=== PATIENT | male | born 1995 | race Asian ===

== ENCOUNTER 2017-08-17 18:58 | Inpatient (IN) | payer OTHER ==
[2017-08-17 19:53] LABS: Hematocrit 47 % (42-52); Mean Corpuscular HGB Conc 34 g/dl (31-36); Mean Corpuscular Hemoglobin 29 pg (27-31); Mean Corpuscular Volume 86 fL (80-94); Mean Platelet Volume 8 um3 (7.4-10.4); Red Blood Count 5.43 10^6/ul (4.0-5.4); Red Cell Distribution Width 12 % (10.5-15); White Blood Count 7.2 10^3/ul (3.5-10.8)
[2017-08-17 20:05] LABS: ALT 13 U/L (7-52); AST 13 U/L (13-39); Acetaminophen < 15 mcg/mL; Albumin 4.5 g/dL (3.2-5.2); Alcohol < 10 mg/dL (<10); Alkaline Phosphatase 70 U/L (34-104); Anion Gap 6 mmol/L (2-11); BUN/Creatinine Ratio 13.8 (8-20); Blood Urea Nitrogen 12 mg/dL (6-24); CO2 Carbon Dioxide 28 mmol/L (22-32); Calcium 9.3 mg/dL (8.6-10.3); Chloride 105 mmol/L (101-111); EGFR African American 142.5 (>60); EGFR Non-African American 110.8 (>60); Globulin 2.9 g/dL (2-4); Glucose 99 mg/dL (70-100); Potassium 3.7 mmol/L (3.5-5.0); Salicylate < 2.50 mg/dL (<30); Sodium 139 mmol/L (133-145); Total Protein 7.4 g/dL (6.4-8.9)
[2017-08-17 20:23] LABS: TSH (Thyroid Stimulating Horm) 0.95 mcIU/mL (0.34-5.60)
[2017-08-17 20:36] LABS: Urine Bilirubin Negative (Negative); Urine Glucose Negative (Negative); Urine Nitrite Negative (Negative)
[2017-08-17 20:54] LABS: Benzodiazepine Urine Screen None Detected (None Detect)
[2017-08-18] MEDS ORDERED: diPHENhydraMINE PO* 50 MG ONE (01:40)
[2017-08-18] MEDS ORDERED: Acetaminophen TAB* 325 MG PO PRN (02:11)
[2017-08-18] MEDS ORDERED: Al Hydrox/Mg Hydrox/Simet LIQ* 30 ML UDC PO PRN (02:11)
--- NOTE | 2017-08-18 06:18 | ED ---
Jamee Carlisle Alfonso, scribed for Too Kumar MD on 08/17/17 at 1934 . Psychiatric Complaint - HPI Summary HPI Summary: This patient is a 22 year old M brought in by police 941 to [facility] with a chief complaint of SI since earlier today. He states I told my mother I would rather be than alive and I feel like my life day to day sucks and the best part of my day is sleeping. The patient rates the pain 0/10 in severity. Symptoms aggravated by academic stress. Symptoms alleviated by nothing. Patient reports academic stress. Patient denies an SI plan and previous SI attempts. 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 FHx of depression in mother. - History Of Current Complaint Chief Complaint: EDMentalHealth Time Seen by Provider: 08/17/17 19:12 Hx Obtained From: Patient Onset/Duration: Sudden Onset, Lasting Hours, Still Present Timing: Constant Character: Depressed Aggravating Factor(s): Recent Stress - academic Alleviating Factor(s): Nothing Has Suicidal: Reports: Thoughts. Denies: With A Plan, Demonstrates Gesture, Has Prior Attempt(s) - Allergies/Home Medications Allergies/Adverse Reactions: Allergies Allergy/AdvReac Type Severity Reaction Status Date / Time No Known Allergies Allergy Verified 08/17/17 19:06 PMH/Surg Hx/FS Hx/Imm Hx Opthamlomology History: Denies: Hx Legally Blind EENT History: Denies: Hx Deafness Infectious Disease History: No Infectious Disease History: Denies: Traveled Outside the [place] in Last 30 Days - Family History Known Family History: Positive: Other - Depression in mother - Social History Occupation: Student Alcohol Use: Occasionally Substance Use Type: Reports: None Hx Tobacco Use: Yes Smoking Status (MU): Current Some Day Smoker Review of Systems Negative: Fever Psychological: Other - SI, academic stress; negative SI plan and previous SI attempts All Other Systems Reviewed And Are Negative: Yes Physical Exam - Summary Physical Exam Summary: VITAL SIGNS: Reviewed. GENERAL: Patient is a well-developed and nourished male who is lying comfortable in the stretcher. Patient is not in any acute respiratory distress. HEAD AND FACE: No signs of trauma. No ecchymosis, hematomas or skull depressions. No sinus tenderness. EYES: PERRLA, EOMI x 2, No injected conjunctiva, no nystagmus. EARS: Hearing grossly intact. Ear canals and tympanic membranes are within normal limits. MOUTH: Oropharynx within normal limits. NECK: Supple, trachea is midline, no adenopathy, no JVD, no carotid bruit, no c- spine tenderness, neck with full ROM. CHEST: Symmetric, no tenderness at palpation LUNGS: Clear to auscultation bilaterally. No wheezing or crackles. CVS: Regular rate and rhythm, S1 and S2 present, no murmurs or gallops appreciated. ABDOMEN: Soft, non-tender. No signs of distention. No rebound no guarding, and no masses palpated. Bowel sounds are normal. EXTREMITIES: FROM in all major joints, no edema, no cyanosis or clubbing. NEURO: Alert and oriented x 3. No acute neurological deficits. Speech is normal and follows commands. SKIN: Dry and warm PSYCH: Depressed, quiet, and reports suicidal thoughts without a plan. No homicidal thoughts or plan. No signs of psychosis or pressure speech. No tangential speech. Triage Information Reviewed: Yes Vital Signs On Initial Exam: Initial Vitals Temp Pulse Resp BP Pulse Ox 97.7 F 83 18 132/78 99 08/17/17 19:04 08/17/17 19:04 08/17/17 19:04 08/17/17 19:04 08/17/17 19:04 Vital Signs Reviewed: Yes Diagnostics - Vital Signs Vital Signs Temp Pulse Resp BP Pulse Ox 08/17/17 19:04 97.7 F 83 18 132/78 99 - Laboratory Result Diagrams: 08/17/17 19:29 08/17/17 19:29 Lab Statement: Any lab studies that have been ordered have been reviewed, and results considered in the medical decision making process. Course/Dx - Course Assessment/Plan: This patient is a 22 year old M brought in by police 941 to [facility] with a chief complaint of SI since earlier today. He states I told my mother I would rather be than alive and I feel like my life day to day sucks and the best part of my day is sleeping. The patient rates the pain 0/10 in severity. Symptoms aggravated by academic stress. Symptoms alleviated by nothing. Patient reports academic stress. Patient denies an SI plan and previous SI attempts. 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 FHx of depression in mother. Test results with no significant abnormalities. The patient is medically cleared and awaiting a MHE. After MHE, [place] was [place] [facility] - Differential Dx/Clinical Impression Provider Diagnosis: Depressive disorder Discharge - Discharge Plan Condition: Guarded Disposition: ADMITTED TO [facility] documentation as recorded by the Jamee may Alfonso accurately reflects the service I personally performed and the decisions made by , Too Kumar MD.
[2017-08-18] MEDS: Vitamin THERAPEUTIC TAB PO SCH (09:48)
[2017-08-18] MEDS ORDERED: traZODone TAB* 50 MG TAB PO PRN (14:03)
[2017-08-18] MEDS ORDERED: Gabapentin CAP(*) 100 MG PO SCH (21:00)
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
[2017-08-19] MEDS: Vitamin THERAPEUTIC TAB PO SCH (09:04)
--- NOTE | 2017-08-19 11:19 | PN ---
Subjective - Subjective Service Type: 24680 Hosp care 15 min low complexity Subjective: Patient reports difficulty falling asleep last night. He reports not knowing who/how to ask for prn insomnia med. He woke up for breakfast then returned to bed and woke just prior to meeting with brief writer. He endorses mild insight into coping strategies for depressive and anxious sx. He reports utilizing computer to email his professor and ask for an extension to take a prelim exam. Objective - Appearance Appearance: Well Developed/Nourished Dysmorphic Features: Yes Hygiene: Normal Grooming: Fairly Well Kept - Behavior Psychomotor Activities: Normal Exhibits Abnormal Movement: No - Attitude and Relatedness Attitude and Relatedness: Cooperative Eye Contact: Good - Speech Quality: Unpressured Latencies: Normal Quantity: Appropriate - Mood Patient's Decription of Mood: "tired" - Affect Observed Affect: Fair Affect Consistent with: Euthymia - Thought Process Patient's Thought Process: Coherent, Goal Directed Thought Content: No Passive Wish, No Suicidal Planning, No Homicidal Ideation, No Paranoid Ideation - Sensorium Experiencing Hallucinations: No, Sensorium is Clear Type of Hallucinations: Visual: No, Auditory: No, Command: No - Level of Consciousness Level of Consciousness: Alert Orientation: Yes Intact, Yes Orientated to Time, Yes Orientated to Place, Yes Orientated to Person - Impulse Control Impulse Control: Tenuous - Insight and Judgement Insight and Judgement: Fair - Group Participation Particating in Group Activities: Yes - Medication Management Medication Management Adherence: No Assessment - Assessment Merits Inpatient Hospitalization: For Immediate Safety, For Stabilization, For Discharge Planning, Pending Safe DC Plan Inpatient DSM-IV Dx: adjustment d/o with depressed mood; r/o depressive d/o Clinical Impression: Patient is a 22yo male, [employer] 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 He was sent to ED by [employer] GUTIERREZ after making statements regarding passive wish to parents on the phone. Patient merits hospitalization for immediate safety and to initiate mental health treatment. Plan - Plan Treatment Plan: Name: LEELA FREEMAN Birthdate: 1995 [id number] Continued Medication Management: Start Medication Medications: Current Medications Acetaminophen (Tylenol Tab*) 650 mg PO Q4H PRN PRN Reason: PAIN or TEMP > 101 F Al Hydrox/Mg Hydrox/Simethicone (Maalox Plus*) 30 ml PO Q4H PRN PRN Reason: INDIGESTION Diphenhydramine HCl (Benadryl Po*) 50 mg PO Q6H PRN PRN Reason: ANXIETY/INSOMNIA Multivitamins (Theragran Tab*) 1 tab PO DAILY SREE Last Admin: 08/19/17 09:04 Dose: Not Given Trazodone HCl (Desyrel Tab*) 50 mg PO BEDTIME PRN PRN Reason: INSOMNIA - Discharge Plan Discharge Plan: Outpatient Follow Up Outpatient Program: Counseling/Psych Services at [facility]
[2017-08-20 08:46] VITALS: BP 103/59
--- NOTE | 2017-08-20 11:04 | PN ---
MHU: Group Therapy Note - Service Type Service Type: [id number] Group Psychotherapy - Cognitive Behavioral Group Therapy ( CBT):Patient was attentive and participatory in CBT programming this morning, and remained in good behavioral control. Patient expressed positive insights regarding relevant treatment interventions and goals.
--- NOTE | 2017-08-20 12:45 | DS ---
CC: [employer] SALMON* DATE OF ADMISSION: 08/18/2017. DATE OF DISCHARGE: 08/20/2017. SUPERVISING PSYCHIATRIST: Dr. Josias Saenz* (dictated by SANNA Alexander) . DISCHARGE DIAGNOSES: AXIS I: Adjustment disorder with depressed mood, rule out unspecified depressive disorder. AXIS II: Deferred. AXIS III: No active medical problem. AXIS IV: Stressors related to academic stressors and interpersonal strain, isolation from family. AXIS V: 65. CONDITION AT THE TIME OF DISCHARGE: Improved. The patient continues to deny suicidal ideation or passive wish. He continues to assert that statements made to his family about wishing to be were made out of desperation. He denies depressed mood. He denies anxious distress. He requests to be discharge in order to return to academic responsibilities. He states he is looking forward to returning to his apartment house this week and has plans to visit his grandmother in [place], [place] this weekend for an extended weekend due to the federal holiday. He is agreeable to continue with outpatient mental health services, including counseling at [facility]. MENTAL STATUS EXAM: The patient is a moderate-framed, male dressed in his own clothing. He appears stated age. He is euthymic with a bright affect and cooperative with interview. He answers questions fully. He is pleasant and engaged. He is alert and oriented times three. Concentration is good. His memory is 3/3. His mood is "tired." He attributes this to utilizing Trazodone last night. His affect is bright. Speech is regular rate and rhythm , articulate. Thought process is logical and goal-directed. Content of thought is negative for SI, SIB urges, HI or . He denies A/V hallucinations, preoccupations, rituals or delusions. His insight is good. His judgment is good. His fund of knowledge is excellent. FOLLOW-UP CARE: The patient will follow-up with [facility] and [facility] for counseling and medication management. The patient will receive an appointment with the [facility] counselor today by estate planner. HOSPITAL COURSE: A. Reason for admission: The patient was brought to the emergency department by [place] Police. The police were notified by his father after he hung up on his parents, stating that he wished he was . The patient was agreeable to admission process to Adult Behavioral Services Unit. B. Psychiatric treatment rendered: The patient was admitted to the Adult Behavioral Services Unit on 939 status. Code status was full. He was placed on safety checks every 15 minutes. He was encouraged to participate in therapeutic milieu, individual sessions with staff, and group psychoeducation. He completed an MMPI for diagnostic clarification. [employer] and estate planner spoke with the patient's mother to obtain collateral. The patient denied reports that he had taken an overdose on medications and this was verified that likely information was misconstrued in the admission process. He was offered prn Trazodone for insomnia related to stressors. He tolerated this well. He reports some sedation this morning. He was encouraged to utilize medication half tab to one tab prn insomnia and he agrees to do so. Prescription for Trazodone was electronically prescribed to [facility] per patient request. His diet is regular. His activity is ambulation as tolerated. Tobacco cessation not applicable and there are no pending labs or diagnostic studies at the time of discharge. As stated above, he will follow- up with [facility] today. The patient was safe on all checks and decreased to q.30 minute observation status. He denies SI or passive wish. He participated in milieu with select peers. He participated in programming and went on staff pass. He reports identifying with subjects of positive psychology and CBT when exposed to these during psychoeducational groups. The patient expresses concern for increased decompensation if admission continues. Due to obligation to treat in a less restrictive setting, treatment team decided upon discharge. The patient will be discharged by nursing staff and escorted to taxi cab to return to [facility]. SANNA ALEXANDER [id number]/CPS #: [id number] EVY
== END 2017-08-20 12:45 | disposition home or self-care (01) | DRG 881 ==
LOC: ED 18:58 → BSU 08-18 05:17
PROVIDERS: ADMIT Psychiatry & Neurology Psychiatry; ATTEND Psychiatry & Neurology Psychiatry
PROC: GZHZZZZ Group Psychotherapy (ICD-10-PCS; principal; 2017-08-20)
DX: F43.21 Adjustment disorder with depressed mood (principal); R45.851 Suicidal ideations; F32.9 Major depressive disorder, single episode, unspecified; F17.210 Nicotine dependence, cigarettes, uncomplicated; Z81.8 Family history of other mental and behavioral disorders; Z72.89 Other problems related to lifestyle
CPT/HCPCS: 36415; 80053; 80307; 80320; 80329; 81003; 84443; 85025; 90853; 99222; 99231; 99238; 99406; A9270-GY; G0480